=== PATIENT | female | born 1945 | race Caucasian/White ===

== ENCOUNTER 2017-09-18 06:00 | Day surgery (SDC) | payer MEDICARE ==
[~2017-09-18] VITALS: Ht 162.6 cm; Wt 113.6 kg
[2017-09-18 06:43] VITALS: BP 177/103; PULSE 68; RESP 20; TEMP 98.4; O2SAT 94
[2017-09-18] MEDS ORDERED: SITA25 PO (06:57)
[2017-09-18] MEDS ORDERED: SIMV20TA PO (06:57)
[2017-09-18] MEDS ORDERED: GLIM4TAB PO (06:57)
[2017-09-18] MEDS ORDERED: METF1000 PO (06:57)
[2017-09-18] MEDS ORDERED: ASPI81TA81 (06:57)
[2017-09-18] MEDS ORDERED: ceFAZolin 2 GM PREMIX 50 ML - implanted port/tunneled catheter insertion IV SCH (07:30)
[2017-09-18 07:32] LABS: AUTOMATED NEUTROPHIL # 3.3 TH/MM3 (1.8-7.7); BASOPHIL % 0.4 % (0.0-2.0); EOSINOPHIL # 0.2 TH/MM3 (0-0.4); EOSINOPHIL % 3.2 % (0.0-4.0); HEMATOCRIT 39.8 % (35.0-46.0); HEMOGLOBIN 13.8 GM/DL (11.6-15.3); LYMPH % 16.6 % (9.0-44.0); LYMPHOCYTE # 0.8 TH/MM3 (1.0-4.8); MEAN CELL VOLUME 94.5 FL (80.0-100.0); MEAN CORPUSCULAR HEMOGLOBIN 32.7 PG (27.0-34.0); MEAN CORPUSCULAR HGB CONC 34.6 % (32.0-36.0); MONO % 11.3 % (0.0-8.0); MONOCYTE # 0.6 TH/MM3 (0-0.9); NEUT % 68.5 % (16.0-70.0); PLATELET COUNT 236 TH/MM3 (150-450); RED BLOOD COUNT 4.21 MIL/MM3 (4.00-5.30); RED CELL DISTRIBUTION WIDTH 12.9 % (11.6-17.2); WHITE BLOOD COUNT 4.9 TH/MM3 (4.0-11.0)
[2017-09-18 07:41] LABS: INTERNATIONAL NORMALIZED RATIO 1.1 RATIO; PROTHROMBIN TIME - PATIENT 10.7 SEC (9.8-11.6)
[2017-09-18] MEDS ORDERED: SODIUM BICARBONATE 8.4% INJ 50 ML ONE (07:46)
[2017-09-18 08:30] VITALS: BP 158/82; PULSE 64; RESP 18; TEMP 98.3; O2SAT 93
--- NOTE | 2017-09-18 08:30 | PD.RAD ---
Post Procedure Progress Note Pre Procedure Diagnosis: (1) Follicular lymphoma (2) Encounter for care related to Port-a-Cath Post Procedure Diagnosis: (1) Encounter for care related to Port-a-Cath (2) Follicular lymphoma Procedure Date: Sep 18, 2017 Supervising Radiologist: Diallo Grossman Estimated blood loss: 2cc Anesthesia: Local Plan of Activity Patient to Unit: ROPU Patient Condition: Good Additional Comments: Port removed from the right chest without difficulty. Full dictated report to follow See PACS Report for procedural detail/treatment Diallo Grossman MD Sep 18, 2017 08:30
[2017-09-18 09:00] VITALS: BP 138/70; PULSE 79; RESP 18; O2SAT 94
--- NOTE | 2017-09-18 09:43 | RADRPT ---
EXAM DATE/TIME: 09/18/2017 09:30 [facility] COMPARISON: No previous studies available for comparison. INDICATIONS : Patient presents with a history of follicular lymphoma in need of port removal that is no longer need ed. MEDICAL HISTORY : DM 2 Melanoma Non hodgkins lymphoma Arthritis SURGICAL HISTORY : Hysterectomy Port Gallbladder Tonsils and adenoids 1953 ENCOUNTER: Initial ACUITY: > 1 year PAIN SCORE: 0/10 LOCATION: N/A Prophylactic antibiotics were administered with appropriate pre-procedure timing. Vancomycin within 2 hrs of procedure, Ancef (or alternative) within 1 hr of procedure. TECH NOTE: The total number of scenes for the radiology summary was one.YURY SOLER MR#:[id number] DOB[birth year]0 Exam Dt/Desc: September 18, 2017INFUS-A-PORT REMOVAL, W/O FLUORO, RIGHT PROCEDURE : 1. Removal of Recymg-d-ennr. 2. Continuous EKG and oximetry monitoring. 3. Fluoroscopic guidance. The risks, benefits and alternatives to the procedure were explained and verbal and written consent w as obtained. The patient was placed supine. The port was prepped in sterile fashion. Full sterile t echnique was used, including cap, mask, sterile gloves and gown, and a large sterile sheet. Hand hyg iene and 2% chlorhexidine and/or Betadine/alcohol prep was utilized per protocol for cutaneous antise psis. The skin and subcutaneous tissues were infiltrated with local anesthetic solution the subcutaneous po cket was opened. The port was dissected from the subcutaneous tissues and easily removed in one piec e. The pocket incision was closed with subcuticular Vicryl suture. Steri-Strips were applied. EKG and oximetry remained stable throughout the procedure. The patient tolerated the procedure well and there were no complications. The patient was sent to post anesthesia recovery in stable condition . CONCLUSION: Uncomplicated port removal as above. Diallo Grossman MD on September 18, 2017 at 9:39 Board Certified Radiologist. This report was verified electronically.
== END 2017-09-18 09:25 | disposition home or self-care (01) ==
LOC: HROP 06:00 → HRIP 06:01 → HROP 09:25
PROVIDERS: ATTEND Internal Medicine Hematology & Oncology
DX: Z45.2 Encounter for adjustment and management of vascular access device (principal); C82.90 Follicular lymphoma, unspecified, unspecified site; E11.9 Type 2 diabetes mellitus without complications; M19.90 Unspecified osteoarthritis, unspecified site; Z01.818 Encounter for other preprocedural examination
CPT/HCPCS: 36590; 85025; 85610; 85730